=== PATIENT | female | born 1945 | race African-American/Black ===

== ENCOUNTER 2017-07-05 03:40 | Emergency (ER) | payer MEDICARE, OTHER ==
[~2017-07-05 03:40] MED LIST: AMLO5 PO; ASPI81TA82 PO; GLIP5 PO; LISI2.5T3 PO; NAPR-729 PO
[2017-07-05 03:47] VITALS: BP 144/62; PULSE 62; RESP 16; TEMP 97.6; O2SAT 98
[2017-07-05] MEDS ORDERED: ALLO100T PO (03:47)
[2017-07-05] MEDS ORDERED: SIMV10TA PO (03:47)
[2017-07-05] MEDS ORDERED: LYRI150C PO (03:47)
[2017-07-05] MEDS ORDERED: SULF1TAB23 PO (03:47)
[2017-07-05] MEDS ORDERED: ERGO2000 PO (03:47)
[2017-07-05] MEDS ORDERED: ATEN100T PO (03:47)
[2017-07-05] MEDS ORDERED: GLIP5TAB8 PO (03:47)
[2017-07-05] MEDS ORDERED: SITA1TAB2 PO (03:47)
[2017-07-05] MEDS ORDERED: OMEP20TA93 PO (03:47)
[2017-07-05] MEDS ORDERED: LISI-515 PO (03:47)
[2017-07-05] MEDS ORDERED: AMLO10TA2 PO (03:47)
[2017-07-05] MEDS ORDERED: PRED20 PO (04:06)
[2017-07-05] MEDS ORDERED: VIST50CA PO (04:06)
--- NOTE | 2017-07-05 04:13 | PD ---
HPI Chief Complaint: Skin Problem Time Seen by Provider: 03:53 Travel History International Travel<30 days: No Contact w/Intl Traveler<30days: No Traveled to known affect area: No History of Present Illness HPI 71-year-old black female presents to emergency department with complaints of allergic reaction tonight. She states that yesterday she noticed some skin irritation and itching. Over last 24 hours it has become increasingly more intense followed by hives. She has swelling around her face. She denies any shortness of breath or wheezing. No glossal edema or difficulty swallowing. She states that she started a new medication (vitamin D) approximately 2 weeks ago. She denies any other exposures or chemicals. No skin care products changes or departmental changes. PFSH Past Medical History Blood Disorders: No Cancer: No Cardiovascular Problems: No Diabetes: Yes Patient Takes Glucophage: No Diminished Hearing: No Endocrine: Yes Genitourinary: Yes Hypertension: Yes Immune Disorder: No Musculoskeletal: No Neurologic: No Psychiatric: No Reproductive: No Respiratory: No Renal Failure: Yes ?: Not Menopausal: Yes Past Surgical History Abdominal Surgery: No Cardiac Surgery: No Ear Surgery: No Endocrine Surgery: No Eye Surgery: No Genitourinary Surgery: No Gynecologic Surgery: Yes (TUBAL LIGATION) Oral Surgery: No Thoracic Surgery: No Social History Alcohol Use: No Tobacco Use: No Substance Use: No Allergies-Medications (Allergen,Severity, Reaction): Coded Allergies: penicillin G (Unverified Allergy, Severe, RASH, 07/05/17) tramadol (Unverified Allergy, Mild, 07/05/17) metformin (Unverified Adverse Reaction, Mild, WT DECREASES, 07/05/17) Reported Meds & Prescriptions Reported Meds & Active Scripts Active Vistaril (Hydroxyzine Pamoate) 50 Mg Cap 50 Mg PO QID PRN Prednisone 20 Mg Tab 20 Mg PO BID 5 Days Reported Januvia (Sitagliptin Phosphate) 100 Mg Tab 100 Mg PO DAILY Lisinopril 20 Mg Tab 20 Mg PO DAILY Atenolol 100 Mg Tab 100 Mg PO DAILY Allopurinol 100 Mg Tab 100 Mg PO DAILY Simvastatin 10 Mg Tab 10 Mg PO DAILY Amlodipine (Amlodipine Besylate) 10 Mg Tab 10 Mg PO DAILY Glipizide 5 Mg Tab 5 Mg PO BIDAC Take 30 minutes before a meal Vitamin D2 (Ergocalciferol) 2,000 Unit Tab 1.25 Mg PO WEEKLY Lyrica (Pregabalin) 150 Mg Cap 150 Mg PO BID Omeprazole 20 Mg Tab 20 Mg PO DAILY Sulfamethoxazole-Trimethoprim 800-160 Mg Tab 1 Tab PO DAILY Review of Systems Except as stated in HPI: all other systems reviewed are Neg Physical Exam Narrative GENERAL: Well-developed, well-nourished in no acute distress. Nontoxic appearing. HEAD: Normocephalic, patient has some swelling of the eyelids and in for a orbital region. EYES: Pupils equal round and reactive. Extraocular motions intact. No scleral icterus. No injection or drainage. ENT: TMs clear without erythema. The external auditory canals clear. Nose: clear . Posterior pharynx is pink and moist. No tonsillar edema or exudate. Uvula midline. Airway patent. No glossal edema. Normal phonation. NECK: Trachea midline.Supple, nontender, moves head freely. No central bony tenderness or spasm. CARDIOVASCULAR: Regular rate and rhythm without murmurs, gallops, or rubs. RESPIRATORY: Clear to auscultation. Breath sounds equal bilaterally. No wheezes , rales, or rhonchi. GASTROINTESTINAL: Abdomen soft, non-tender, nondistended. No hepato-splenomegaly , or palpable masses. No guarding. EXTREMITIES: No clubbing, cyanosis, or edema. No joint tenderness, effusion, or edema noted. BACK: Nontender without deformity or crepitance. No flank tenderness. Skin: Patient has scattered hives about the extremities and trunk.. Data Data Last Documented VS Vital Signs Date Time Temp Pulse Resp B/P (MAP) Pulse Ox O2 Delivery O2 Flow Rate FiO2 07/05/17 03:47 97.6 62 16 144/62 (89) 98 Orders Orders Blood Glucose (07/05/17 04:02) Diphenhydramine (Benadryl) (07/05/17 04:15) Prednisone (Deltasone) (07/05/17 04:15) Famotidine (Pepcid) (07/05/17 04:15) Ed Discharge Order (07/05/17 04:54) [facility] Medical Decision Making Medical Screen Exam Complete: Yes Emergency Medical Condition: Yes Medical Record Reviewed: Yes Differential Diagnosis Differential diagnoses: Allergic reaction, cellulitis, contact dermatitis Narrative Course Patient adamantly refuses IM and IV medications. She states that she will only take by mouth. Patient is given prednisone 60 mg by mouth, Benadryl 50 mg by mouth, and Pepcid 20 mg by mouth. At 0 455 the patient is reexamined. She has had some mild improvement. She is medically stable for discharge. This is acute allergic reaction Diagnosis Primary Impression: Acute allergic reaction Qualified Codes: T78.40XA - Allergy, unspecified, initial encounter Patient Instructions: General Instructions Additional Instructions: Rest. Perform a diary of all your exposures and contacts. Medications as directed. Follow-up with your doctor in next 24 hours. Monitor your sugars closely. Medications that you are prescribed have a high likelihood of raising her blood sugars. Med/Other Pt SpecificInfo: Prescription(s) given Scripts Hydroxyzine Pamoate (Vistaril) 50 Mg Cap 50 MG PO QID Y for ALLERGIC REACTION, #28 CAP 0 Refills Prov: Monica Mathis MD 07/05/17 Prednisone (Prednisone) 20 Mg Tab 20 MG PO BID for 5 Days, #10 TAB 0 Refills Prov: Moncia Mathis MD 07/05/17 Disposition: 01 DISCHARGE HOME Condition: Stable Deejay Juárez Jul 05, 2017 04:13
[2017-07-05] MEDS ORDERED: diphenhydrAMINE HCL 50 MG CAP PO ONE (04:15)
[2017-07-05] MEDS ORDERED: FAMOTIDINE 20 MG TAB PO ONE (04:15)
[2017-07-05] MEDS ORDERED: predniSONE 20 MG TAB PO ONE (04:15)
== END 2017-07-05 05:00 | disposition home or self-care (01) ==
LOC: NEPD 03:40
DX: T78.40XA Allergy, unspecified, initial encounter (principal); L29.9 Pruritus, unspecified; L50.9 Urticaria, unspecified; N18.9 Chronic kidney disease, unspecified; E11.22 Type 2 diabetes mellitus with diabetic chronic kidney disease; I12.9 Hypertensive chronic kidney disease with stage 1 through stage 4 chronic kidney disease, or unspecified chronic kidney disease; Z79.899 Other long term (current) drug therapy; Z88.0 Allergy status to penicillin; Z88.5 Allergy status to narcotic agent
CPT/HCPCS: 99284; J7512; Q0163

== ENCOUNTER 2017-09-21 08:45 | Emergency (ER) | payer MEDICARE, OTHER ==
[~2017-09-21] VITALS: Ht 162.6 cm; Wt 74.5 kg
[~2017-09-21 08:45] MED LIST changes: +ALLO100T PO; +AMLO10TA2 PO; -AMLO5 PO; -ASPI81TA82 PO; +ATEN100T PO; +ERGO2000 PO; -GLIP5 PO; +GLIP5TAB8 PO; +LISI-515 PO; -LISI2.5T3 PO; +LYRI150C PO; -NAPR-729 PO; +OMEP20TA93 PO; +PRED20 PO; +SIMV10TA PO; +SITA1TAB2 PO; +SULF1TAB23 PO; +VIST50CA PO
[2017-09-21 08:46] VITALS: BP 186/85; PULSE 66; RESP 16; TEMP 98.6; O2SAT 99
--- NOTE | 2017-09-21 09:10 | PD ---
HPI Chief Complaint: Complaint Time Seen by Provider: 09:02 Travel History International Travel<30 days: No Contact w/Intl Traveler<30days: No Traveled to known affect area: No History of Present Illness HPI The patient is a 71-year-old [place] female who presents to the emergency department with dysuria of 2 days' duration. The patient does complain of occasional hematuria with mild dysuria and burning in the suprapubic region as well as suprapubic discomfort. She denies any vaginal bleeding or discharge. She denies any urgency or frequency. She denies any nausea, vomiting, upper abdominal pain, or back pain. She denies any history nephrolithiasis or recurrent urinary tract infections. She denies any associated fever, chills, or sweats. Symptoms are mild, there are no current alleviating or exacerbating factors. She does note an underlying history of renal dysfunction. PFSH Past Medical History Blood Disorders: No Cancer: No Cardiovascular Problems: No Diabetes: Yes Diminished Hearing: No Endocrine: Yes Genitourinary: Yes Hypertension: Yes Immune Disorder: No Musculoskeletal: No Neurologic: No Psychiatric: No Reproductive: No Respiratory: No Renal Failure: Yes Menopausal: Yes Past Surgical History Abdominal Surgery: No Cardiac Surgery: No Ear Surgery: No Endocrine Surgery: No Eye Surgery: No Genitourinary Surgery: No Gynecologic Surgery: Yes (TUBAL LIGATION) Oral Surgery: No Thoracic Surgery: No Social History Alcohol Use: No Tobacco Use: No Substance Use: No Allergies-Medications (Allergen,Severity, Reaction): Coded Allergies: penicillin G (Unverified Allergy, Severe, RASH, 09/21/17) tramadol (Unverified Allergy, Mild, 09/21/17) metformin (Unverified Adverse Reaction, Mild, WT DECREASES, 09/21/17) Reported Meds & Prescriptions Reported Meds & Active Scripts Active Vistaril (Hydroxyzine Pamoate) 50 Mg Cap 50 Mg PO QID PRN Prednisone 20 Mg Tab 20 Mg PO BID 5 Days Reported Januvia (Sitagliptin Phosphate) 100 Mg Tab 100 Mg PO DAILY Lisinopril 20 Mg Tab 20 Mg PO DAILY Atenolol 100 Mg Tab 100 Mg PO DAILY Allopurinol 100 Mg Tab 100 Mg PO DAILY Simvastatin 10 Mg Tab 10 Mg PO DAILY Amlodipine (Amlodipine Besylate) 10 Mg Tab 10 Mg PO DAILY Glipizide 5 Mg Tab 5 Mg PO BIDAC Take 30 minutes before a meal Vitamin D2 (Ergocalciferol) 2,000 Unit Tab 1.25 Mg PO WEEKLY Lyrica (Pregabalin) 150 Mg Cap 150 Mg PO BID Omeprazole 20 Mg Tab 20 Mg PO DAILY Sulfamethoxazole-Trimethoprim 800-160 Mg Tab 1 Tab PO DAILY Review of Systems Except as stated in HPI: all other systems reviewed are Neg General / Constitutional: No: Fever Gastrointestinal: No: Nausea, Vomiting, Abdominal Pain Genitourinary: Positive: Dysuria, Hematuria, Pelvic Pain, No: Urgency, Frequency, Discharge, Vaginal Bleeding Physical Exam Narrative GENERAL: Awake, alert, pleasant 71-year-old female who appears her stated age and is in no acute respiratory distress. SKIN: Focused skin assessment warm/dry. HEAD: Atraumatic. Normocephalic. EYES: No injection or drainage. GASTROINTESTINAL: Abdomen soft, minimal suprapubic discomfort. Back: No CVA tenderness. MUSCULOSKELETAL: No obvious deformities. No clubbing. No cyanosis. No edema. NEUROLOGICAL: Awake and alert. No obvious cranial nerve deficits. Motor grossly within normal limits. Normal speech. PSYCHIATRIC: Appropriate mood and affect; insight and judgment normal. Data Data Last Documented VS Vital Signs Date Time Temp Pulse Resp B/P (MAP) Pulse Ox O2 Delivery O2 Flow Rate FiO2 09/21/17 09:07 18 09/21/17 08:46 98.6 66 186/85 (118) 99 Room Air Orders Orders Urinalysis - C+S If Indicated (09/21/17 09:06) Urine Culture (09/21/17 10:13) Labs Laboratory Tests Test 09/21/17 10:13 Urine Color RED Urine Turbidity CLOUDY Urine pH 7.0 Urine Specific [place] 1.011 Urine Protein 300 OR GREATER mg/dL Urine Glucose (UA) NEG mg/dL Urine Ketones NEG mg/dL Urine Occult Blood LARGE Urine Nitrite NEG Urine Bilirubin NEGATIVE Urine Urobilinogen 0.2 MG/DL Urine Leukocyte Esterase SMALL Urine RBC /hpf Urine WBC 10 /hpf Urine WBC Clumps FEW Urine Squamous Epithelial Cells 5 /hpf Urine Bacteria MANY /hpf Microscopic Urinalysis Comment CULTURE INDICATED MDM Medical Decision Making Medical Screen Exam Complete: Yes Emergency Medical Condition: Yes Medical Record Reviewed: Yes Interpretation(s) Laboratory Tests Test 09/21/17 10:13 Urine Color RED Urine Turbidity CLOUDY Urine pH 7.0 Urine Specific [place] 1.011 Urine Protein 300 OR GREATER mg/dL Urine Glucose (UA) NEG mg/dL Urine Ketones NEG mg/dL Urine Occult Blood LARGE Urine Nitrite NEG Urine Bilirubin NEGATIVE Urine Urobilinogen 0.2 MG/DL Urine Leukocyte Esterase SMALL Urine RBC /hpf Urine WBC 10 /hpf Urine WBC Clumps FEW Urine Squamous Epithelial Cells 5 /hpf Urine Bacteria MANY /hpf Microscopic Urinalysis Comment CULTURE INDICATED Differential Diagnosis Differential diagnosis includes UTI, nephrolithiasis, hemorrhagic cystitis, diverticulitis, vaginitis, bladder cancer. Narrative Course A UA was sent to lab. UA reveals innumerable RBCs, WBCs, and a clumps. Patient has hematuria, could be hemorrhagic cystitis. She does have a history tobacco use, quit in 2001. The patient will be placed on Bactrim and Pyridium to treat for hemorrhagic cystitis, however, is advised if symptoms persist she may need a CT of the abdomen and pelvis to rule out stone and/or bladder mass as well as urology follow-up. The patient agrees and understands. She'll be discharged home. Diagnosis Primary Impression: Hemorrhagic cystitis Patient Instructions: General Instructions Additional Instructions: Medications as directed. Follow-up with her primary physician. If symptoms persist she may need a CT the abdomen and pelvis as well as urology follow-up. Med/Other Pt SpecificInfo: Prescription(s) given Scripts Phenazopyridine (Pyridium) 100 Mg Tab 100 MG PO Q8H Y for DYSURIA for 2 Days, #6 TAB 0 Refills Prov: Deno Colvin MD 09/21/17 Sulfamethoxazole-Trimethoprim (Bactrim DS) 800-160 Mg Tab 1 TAB PO BID for Infection, #14 TAB 0 Refills Prov: Deon Colvin MD 09/21/17 Disposition: DISCHARGE HOME Condition: Stable Deon Colvin MD Sep 21, 2017 09:09
[2017-09-21 10:48] LABS: URINE COLOR RED (YELLW/STRAW)
[2017-09-21 10:49] LABS: BILIRUBIN, URINE NEGATIVE (NEG); BLOOD, URINE LARGE (NEG); GLUCOSE,URINE NEG (NEG); KETONE, URINE NEG (NEG); NITRITE,URINE NEG (NEG); URINE LEUKOCYTE ESTERASE SMALL (NEG)
[2017-09-21 10:54] LABS: BACTERIA, URINE MANY /hpf; SQUAMOUS EPITHELIAL CELL URINE 5 /hpf (0-5); WHITE BLOOD CELL CLUMPS FEW
[2017-09-21] MEDS ORDERED: BACT800T5 PO (11:06)
[2017-09-21] MEDS ORDERED: PHEN0.4T PO (11:06)
== END 2017-09-21 11:52 | disposition home or self-care (01) ==
LOC: NEPD 08:45
DX: N30.91 Cystitis, unspecified with hematuria (principal); B96.20 Unspecified Escherichia coli [E. coli] as the cause of diseases classified elsewhere; E11.9 Type 2 diabetes mellitus without complications; I10 Essential (primary) hypertension; Z16.29 Resistance to other single specified antibiotic; Z79.84 Long term (current) use of oral hypoglycemic drugs
CPT/HCPCS: 81001; 87077; 87086; 87186; 99283